=== PATIENT | male | born 1960 | race Caucasian/White ===

== ENCOUNTER 2019-08-20 13:25 | Emergency (ER) | payer OTHER, MEDICARE ==
[~2019-08-20] VITALS: Ht 188 cm; Wt 115.7 kg
[2019-08-20 13:25] VITALS: BP_SYST 101
[~2019-08-20 13:25] MED LIST: LIALDA PO
[2019-08-20] MEDS ORDERED: ONDANSETRON HCL 4 MG/2 ML VIAL IVP ONE (13:45)
[2019-08-20] MEDS ORDERED: NACL 0.9% 1,000 ML IV ONE (13:45)
[2019-08-20] MEDS ORDERED: METR500T PO (13:50)
[2019-08-20] MEDS ORDERED: ZOLP5TAB2 PO (13:50)
[2019-08-20] MEDS ORDERED: ONDA4TAB5 PO (13:50)
[2019-08-20 14:41] LABS: BASOPHILS # (AUTO) 0.2 K/uL (0.0-0.2); BASOPHILS % (AUTO) 2.1 % (0.0-2.0); EOSINOPHILS # (AUTO) 0.6 K/uL (0.0-0.4); EOSINOPHILS % (AUTO) 5.7 % (0.0-4.0); HEMATOCRIT 33.8 % (36-54); HEMOGLOBIN 10.6 g/dL (14.0-18.0); LYMPHOCYTES # (AUTO) 0.9 K/uL (1.0-5.5); MEAN CORPUSCULAR HEMOGLOBIN 22 pg (27-31); MEAN CORPUSCULAR HGB CONC 31 % (32-36); MEAN CORPUSCULAR VOLUME 71 fL (79.0-98.0); MONOCYTES # (AUTO) 0.4 K/uL (0.0-1.0); NEUTROPHILS # (AUTO) 7.6 K/uL (1.8-7.7); NEUTROPHILS % (AUTO) 79.2 % (40.0-70.0); PLATELET COUNT (AUTO) 422 K/uL (130-430); RED BLOOD CELL COUNT(AUTO) 4.75 MIL/uL (4.2-6.2); RED CELL DISTRIBUTION WIDTH 19.4 % (9.0-15.0); WHITE BLOOD COUNT (AUTO) 9.6 K/uL (4.8-10.8)
[2019-08-20 14:56] LABS: ANION GAP 8 (5-15); CALCIUM 8.5 mg/dL (8.4-11.0); CHLORIDE 104 mmol/L (98-107); CREATININE 1.88 mg/dL (0.55-1.30); GLUCOSE 176 mg/dL (70-99); POTASSIUM 4.6 mmol/L (3.5-5.1); SODIUM SERUM 137 mmol/L (136-145); UREA NITROGEN, BLOOD 18 mg/dL (8-21)
[2019-08-20 14:59] LABS: GFR AFRICAN AMERICAN 48 mL/min (>90)
[2019-08-20 15:01] LABS: ALANINE AMINOTRANSFERASE 21 U/L (12-78); ALBUMIN 2.8 g/dL (3.4-4.8); ASPARTATE AMINOTRANSFERASE 9 U/L (10-37); TOTAL BILIRUBIN 0.4 mg/dL (0.0-1.0)
[2019-08-20 15:25] LABS: BILIRUBIN,URINE NEGATIVE (NEGATIVE); BLOOD, URINE NEGATIVE (NEGATIVE); CLARITY/URINE CLEAR (CLEAR); COLOR,URINE YELLOW (YELLOW); GLUCOSE,URINE NEGATIVE (NEGATIVE); KETONES,URINE NEGATIVE (NEGATIVE); LEUKOCYTE ESTERASE ,URINE TRACE (NEGATIVE); NITRITE, URINE NEGATIVE (NEGATIVE); PROTEIN URINE TRACE (NEGATIVE); UROBILINOGEN,URINE 0.2 (0.2-1.0)
[2019-08-20 15:38] LABS: BACTERIA,URINE MODERATE /HPF (None Seen); RBC,URINE 0-3 /HPF (0-3)
[2019-08-20 15:39] LABS: CALCIUM OXALATE CRYSTALS,UR 0-10 /HPF (None Seen); URINE AMORPHOUS URATE 1+ /HPF (None Seen)
[2019-08-20 16:26] VITALS: BP_SYST 115
== END 2019-08-20 16:26 | disposition home or self-care (01) ==
LOC: SED 13:25
DX: R55 Syncope and collapse (principal); E86.0 Dehydration; N17.9 Acute kidney failure, unspecified; Z88.1 Allergy status to other antibiotic agents; Z88.5 Allergy status to narcotic agent; Z88.8 Allergy status to other drugs, medicaments and biological substances
CPT/HCPCS: 36415; 70450; 71045; 80053; 81000; 84484; 85025; 87086; 93005; 96361; 96374; 99285; J2405; J7030

== ENCOUNTER 2020-11-17 20:25 | Emergency (ER) | payer OTHER, MEDICARE ==
[~2020-11-17] VITALS: Ht 188 cm; Wt 104.3 kg
[~2020-11-17 20:25] MED LIST changes: +METR500T PO; +ONDA4TAB5 PO; +ZOLP5TAB2 PO
[2020-11-17 20:32] VITALS: BP_SYST 125
[2020-11-17] MEDS ORDERED: IBUP-1971 PO (21:55)
[2020-11-17] MEDS ORDERED: HYDR-3917 PO (21:55)
[2020-11-17] MEDS ORDERED: ACET-2634 PO (21:57)
[2020-11-17 22:11] VITALS: BP_SYST 125
[2020-11-17] MEDS ORDERED: ACETAMINOPHEN 500 MG TABLET PO ONE (22:15)
== END 2020-11-17 22:11 | disposition home or self-care (01) ==
LOC: SED 20:25
DX: S02.609A Fracture of mandible, unspecified, initial encounter for closed fracture (principal); Z88.1 Allergy status to other antibiotic agents; Z88.5 Allergy status to narcotic agent; Z88.8 Allergy status to other drugs, medicaments and biological substances; Z79.899 Other long term (current) drug therapy; W51.XXXA Accidental striking against or bumped into by another person, initial encounter; Y93.89 Activity, other specified; Y92.89 Other specified places as the place of occurrence of the external cause; Y99.8 Other external cause status
CPT/HCPCS: 70110-TC; 99283